=== PATIENT | male | born 1960 | race Caucasian/White ===

== ENCOUNTER 2018-12-15 14:40 | Emergency (ER) | payer SELFPAY ==
[~2018-12-15] VITALS: Ht 180.3 cm; Wt 81.8 kg
[2018-12-15 15:02] VITALS: Ht 180.3 cm; Wt 81.8 kg
[2018-12-15 16:55] LABS: APPEARANCE CLEAR (CLEAR); BILIRUBIN NEGATIVE (NEGATIVE); COLOR YELLOW (YELLOW); GLUCOSE NEGATIVE (NEGATIVE); KETONE NEGATIVE (NEGATIVE); NITRITE NEGATIVE (NEGATIVE); PROTEIN NEGATIVE (NEGATIVE); RED CELLS - URINE OCC /hpf (0-5); UROBILINOGEN NORMAL (NORMAL); WHITE CELLS - URINE OCC /hpf (0-5)
[2018-12-15 17:05] VITALS: BP 113/64
== END 2018-12-15 17:05 | disposition home or self-care (01) ==
LOC: D.ER 14:40
PROVIDERS: Family Medicine
DX: A64 Unspecified sexually transmitted disease (principal)

== ENCOUNTER 2020-06-07 23:10 | Emergency (ER) | payer SELFPAY ==
[~2020-06-07] VITALS: Ht 180.3 cm; Wt 81.8 kg
[2020-06-07 23:15] VITALS: BP 146/91; Ht 180.3 cm; Wt 81.8 kg
[2020-06-08] MEDS ORDERED: ERYTHROMYCIN OPT1 GM EACH EYE (00:19)
== END 2020-06-08 00:29 | disposition home or self-care (01) ==
LOC: D.ER 23:10
DX: T15.81XA Foreign body in other and multiple parts of external eye, right eye, initial encounter (principal); X58.XXXA Exposure to other specified factors, initial encounter